=== PATIENT | female | born 1970 | race African-American/Black ===

== ENCOUNTER 2020-09-10 17:50 | Emergency (ER) | payer MEDICAID ==
[~2020-09-10] VITALS: Ht 162.6 cm; Wt 67.0 kg
[2020-09-10 17:57] VITALS: BP 158/90
[2020-09-10 21:56] LABS: BASOPHILS % 0.6 % (0.0-2.0); EOSINOPHILS % 1.6 % (0.0-5.0); HEMATOCRIT. 40.4 % (36.0-48.0); HEMOGLOBIN. 13.3 g/dL (12.0-16.0); LYMPHOCYTES % 32.1 % (20.0-50.0); MEAN CORPUSCULAR HEMOGLOBIN 33.6 pg (28.0-32.0); MEAN PLATELET VOLUME 9.2 fl (7.4-10.4); NEUTROPHILS % 55.7 % (40.0-76.0); PLATELET 229 x1000/uL (130-400); RED BLOOD CELL COUNT 3.96 mill/uL (4.2-5.4); RED CELL DISTRIBUTION WIDTH 13.7 % (11.6-14.6)
[2020-09-10 22:03] LABS: CHLORIDE 112 mEq/L (98-107)
[2020-09-10 22:07] LABS: ETHANOL BLOOD 249 mg/dL
== END 2020-09-11 01:30 | disposition left against medical advice (07) ==
LOC: ER 17:50 → EDBD 17:50 → ER 09-11 01:30
DX: Z53.21 Procedure and treatment not carried out due to patient leaving prior to being seen by health care provider (principal)
CPT/HCPCS: 36415; 80053; 80320; 85025; G0480